=== PATIENT | female | born 1940 | race Caucasian/White ===

== ENCOUNTER 2021-07-31 14:01 | Inpatient (IN) | payer OTHER ==
[~2021-07-31] VITALS: Ht 167.6 cm; Wt 59.9 kg
[2021-08-01] MEDS ORDERED: LIPITOR40 MG PO (10:07)
[2021-08-01] MEDS ORDERED: DULCOLAX10 M1 R (10:11)
[2021-08-01] MEDS ORDERED: CLOPIDOGREL75 MG PO (10:12)
[2021-08-01] MEDS ORDERED: ELIQUIS5 M1 PO (10:15)
[2021-08-01] MEDS ORDERED: ARNUITY ELLIPT50 MCG NAS (10:24)
[2021-08-01] MEDS ORDERED: GAVILAX8.5 GM PO (10:27)
[2021-08-01] MEDS ORDERED: MUCUS RELIEF400 MG PO (10:29)
[2021-08-01] MEDS ORDERED: LOSARTAN POTASS50 M1 PO (10:30)
[2021-08-01] MEDS ORDERED: MULTIVITAMINS1 EAC6 PO (10:31)
[2021-08-01] MEDS ORDERED: NYSTATIN1 EAC3 T (10:33)
[2021-08-01] MEDS ORDERED: NYSTATIN1 EAC3 MC (10:35)
[2021-08-01] MEDS ORDERED: PANTOPRAZOLE SO40 MG PO (10:36)
[2021-08-01] MEDS ORDERED: REFRESH TEARS15 ML OP (10:38)
[2021-08-01] MEDS ORDERED: SALINE MIST 4444 ML NAS ×2 (10:39→10:49)
[2021-08-01] MEDS ORDERED: ARMOUR THYROID15 M1 PO (10:42)
[2021-08-01] MEDS ORDERED: WHITE PETROLATUM T (10:43)
[2021-08-01 20:00] VITALS: BP 108/79
[2021-08-02 07:13] LABS: BASO % 0.2 % (0.0-1.0); EOS % 0.2 % (1.0-4.0); HEMATOCRIT 38.5 % (37.0-47.0); LYMPH # 1.4 10*3/uL (1.3-4.4); LYMPH % 30.1 % (27.0-41.0); MEAN CELL VOLUME 89.3 fl (81.0-99.0); MEAN CORPUSCULAR HGB 27.6 pg (27.0-31.0); MEAN CORPUSCULAR HGB CONC 30.9 g/dl (33.0-37.0); MEAN PLATELET VOLUME 13.1 fl (9.6-12.3); MONO # 0.5 10*3/uL (0.1-1.0); MONO % 10.6 % (3.0-9.0); NEUT # 2.8 10*3/uL (2.3-7.9); NEUT % 58.5 % (47.0-73.0); PLATELET COUNT AUTOMATED 196 10*3/uL (130-400); RED BLOOD COUNT 4.31 10*6/uL (4.10-5.10); RED CELL DISTRI WIDTH 16.2 % (0-14.5); WHITE BLOOD COUNT 4.7 10*3/uL (4.8-10.8)
[2021-08-02 07:17] LABS: ALBUMIN 2.7 gm/dl (3.1-4.5); CREATININE 1.71 mg/dL (0.55-1.02); POTASSIUM 3.9 mmol/L (3.5-5.1)
[2021-08-02 07:28] LABS: THYROID STIM HORMONE (HS) 8.19 uIU/ml (0.358-4.75)
[2021-08-02 08:00] VITALS: BP 116/58
[2021-08-02 09:56] LABS: VITAMIN D, 25-HYDROXY 57.5 ng/mL (30-100)
[2021-08-02 19:07] LABS: BILIRUBIN 1+ (Negative); BLOOD 3+ (Negative); CLARITY Turbid (Clear); COLOR Orange (Yellow); GLUCOSE Negative (Negative); KETONE Trace (Negative); LEUKO ESTERASE 3+ (Negative); NITRITE Positive (Negative); SPECIFIC GRAVITY 1.015 (1.001-1.030)
[2021-08-02 19:17] LABS: EPITHELIAL CELLS TNTC; RBC TNTC rbc/hpf (0-2); WBC TNTC wbc/hpf (0-5)
[2021-08-02 19:18] LABS: BACTERIA 4+
[2021-08-02 20:10] VITALS: BP 107/65
[2021-08-03 07:07] LABS: ALBUMIN 2.6 gm/dl (3.1-4.5); CREATININE 2.09 mg/dL (0.55-1.02); POTASSIUM 3.7 mmol/L (3.5-5.1); TOTAL PROTEIN 6.6 gm/dL (6.4-8.2)
[2021-08-03 07:40] VITALS: BP 100/70
[2021-08-03 20:00] VITALS: BP 102/60
== END 2021-08-04 10:10 | DRG 885 ==
LOC: 3N 14:01
PROVIDERS: Student in an Organized Health Care Education/Training Program; ADMIT Psychiatry & Neurology Psychiatry; ATTEND Psychiatry & Neurology Psychiatry
PROC: BD1BYZZ Fluoroscopy of Mouth/Oropharynx using Other Contrast (ICD-10-PCS; principal; 2021-08-02)
DX: F33.9 Major depressive disorder, recurrent, unspecified (principal); E43 Unspecified severe protein-calorie malnutrition; U07.1 COVID-19; N17.0 Acute kidney failure with tubular necrosis; I26.99 Other pulmonary embolism without acute cor pulmonale; R45.851 Suicidal ideations; Z66 Do not resuscitate; J45.909 Unspecified asthma, uncomplicated; E03.9 Hypothyroidism, unspecified; K21.9 Gastro-esophageal reflux disease without esophagitis; K59.00 Constipation, unspecified; E87.8 Other disorders of electrolyte and fluid balance, not elsewhere classified; I25.10 Atherosclerotic heart disease of native coronary artery without angina pectoris; I10 Essential (primary) hypertension; E78.5 Hyperlipidemia, unspecified; Z82.0 Family history of epilepsy and other diseases of the nervous system; Z88.0 Allergy status to penicillin; Z88.2 Allergy status to sulfonamides; Z88.1 Allergy status to other antibiotic agents; Z68.21 Body mass index [BMI] 21.0-21.9, adult; Z88.8 Allergy status to other drugs, medicaments and biological substances; Z51.5 Encounter for palliative care